=== PATIENT | female | born 1955 | race Caucasian/White ===

== ENCOUNTER → 2016-09-11 | Outpatient (CLI) | payer SELFPAY ==
--- NOTE | 2016-09-11 10:45 | EKG ---
[address] [address] Measurements Intervals [place] Rate: 45 P: 42 RI: 177 QRS: 67 QRSD: 98 T: 65 QT: 487 QTc: 442 Interpretive Statements SINUS BRADYCARDIA No previous ECG available for comparison Electronically Signed On 09-11-16 13:37:18 MST by Parviz Sr MD [email or web address]
== END ==
LOC: MOB EKG 10:35
PROVIDERS: ATTEND Nurse Practitioner Family
DX: R00.1 Bradycardia, unspecified (principal)
CPT/HCPCS: 93005; 93010

== ENCOUNTER → 2016-11-25 | Outpatient (CLI) | payer BC ==
--- NOTE | 2016-11-25 10:57 | DI ---
RIGHT FOOT, 11/25/2016 10:06 AM: Clinical History: Calcific Achilles tendon and this of the right foot. Previous Exam: None at this facility. 3 weightbearing views are submitted. There is no acute soft tissue, osseous, or joint abnormality. Th ere is a bony spur or exostosis extending from the dorsomedial aspect of the distal head of the first metatarsal bone. There is calcification in the distal aspect of the Achilles tendon proximal to the insertion on the calcaneus. Readin. Bone spur or exostosis involving the distal head of the first metatarsal bone. 2. Calcification in the distal aspect of the Achilles tendon.
== END ==
LOC: MOB RAD 10:16
PROVIDERS: ATTEND Podiatrist Foot & Ankle Surgery
DX: M65.261 Calcific tendinitis, right lower leg (principal); M20.41 Other hammer toe(s) (acquired), right foot; M79.671 Pain in right foot
CPT/HCPCS: 73630